=== PATIENT | male | born 1960 | race Caucasian/White ===

== ENCOUNTER → 2019-11-20 | Outpatient (CLI) | payer OTHER ==
--- NOTE | 2019-11-20 10:22 | XR ---
EXAMINATION TYPE: XR chest 2V DATE OF EXAM: 11/20/2019 COMPARISON: None INDICATION: Presurgical evaluation TECHNIQUE: Frontal and lateral views of the chest are obtained. FINDINGS: The heart size is normal. The pulmonary vasculature is normal. The lungs are clear. Osseous structures appear unremarkable. IMPRESSION: 1. No acute pulmonary process.
[2019-11-20 11:27] LABS: Basophils # (A) 0.1 k/uL (0-0.2); Basophils % (A) 1 %; Eosinophils # (A) 0.1 k/uL (0-0.7); Eosinophils % (A) 2 %; HCT 47.3 % (39.0-53.0); HGB 16.6 gm/dL (13.0-17.5); Lymphocytes # (A) 1.5 k/uL (1.0-4.8); Lymphocytes % (A) 23 %; MCH 32.4 pg (25.0-35.0); MCHC 35.2 g/dL (31.0-37.0); Mean Platelet Volume 6.7; Monocytes # (A) 0.4 k/uL (0-1.0); Monocytes % (A) 6 %; Neutrophils # (A) 4.4 k/uL (1.3-7.7); Neutrophils % (A) 68 %; Platelet Count 240 k/uL (150-450); RBC 5.14 m/uL (4.30-5.90); RDW 12.6 % (11.5-15.5); WBC 6.4 k/uL (3.8-10.6)
[2019-11-20 11:36] LABS: Prothrombin Time 10.1 sec (9.0-12.0)
[2019-11-20 12:04] LABS: African American GFR (CKD) >90 (>60 ml/min/1.73 sqM); Anion Gap 8 mmol/L; Blood Urea Nitrogen 17 mg/dL (9-20); Calcium 9.6 mg/dL (8.4-10.2); Carbon Dioxide 28 mmol/L (22-30); Chloride 104 mmol/L (98-107); Glucose 139 mg/dL (74-99); Non-African American GFR(CKD) 79 (>60 ml/min/1.73 sqM); Potassium 4.8 mmol/L (3.5-5.1); Sodium 140 mmol/L (137-145)
== END | disposition home or self-care (01) ==
LOC: LABPAT 09:38
PROVIDERS: ATTEND Urology
DX: Z01.818 Encounter for other preprocedural examination (principal); C61 Malignant neoplasm of prostate; R58 Hemorrhage, not elsewhere classified
CPT/HCPCS: 36415; 71046; 80048; 85025; 85610; 93005

== ENCOUNTER 2019-11-27 05:58 | Observation (INO) | payer OTHER ==
--- NOTE | 2019-11-02 12:21 | P.HPIHPCON ---
History of Present Illness H&P Date: 11/27/19 Chief Complaint: Prostate cancer Mr Beebe is 59 yo male with hx of moriah 7(3+4) prostate cancer. We discussed with him the options including surgery and radiation therapy. We discussed the risk and benefits with him of each approach. I discussed with surgery the risk of urinary incontinence or erectile dysfunction, I also discussed with him risk of injury to nearby organs including but not limited bowels, rectum, bladder and blood vessels. I also discussed the risk from anesthesia with him. Which included blood clots, heart attack, stroke and even . He understood all the risk and agreed to proceed with a robotic-assisted radical prostatectomy Consent for Procedure: I have explained the operation/procedure to the patient, including the risks, benefits, side effects, alternative therapies (including not receiving the proposed treatment or service), the likelihood of the patient achieving his/her goals, and potential recuperation problems for the procedure/sedation/analgesia, as well as any blood products, if indicated. I also explained to the patient the risks, benefits and side effects of the alternatives, as well as the risks related to not receiving the proposed procedure, care, treatment, or services. Surgical - Exam - General well developed, well nourished, no distress - Respiratory normal respiratory effort, clear to auscultation - Neurologic no disoriented, no combative Assessment and Plan Assessment: 59 yo male with hx of moriah 7 (3+4) prostate cancer -OR for robotic prostatectomy
[2019-11-25 10:34] VITALS: BMI 27.8
[~2019-11-27 05:58] MED LIST: DEXAMETHASONE SOD PHOSPHATE 10 MG/ML 1 ML VIAL IV ONE; HYDROmorphone 0.5 MG/0.5 ML SYRINGE IVP PRN; LIDOCAINE 1% (10MG/ML) FOR IV START INTRADERMA PRN; ONDANSETRON 4 MG/2 ML VIAL IVP ONE; ONDANSETRON 4 MG/2 ML VIAL IVP PRN
[2019-11-27] MEDS: LACTATED RINGERS 1,000 ML IV SCH (06:40)
[2019-11-27] MEDS ORDERED: ONDANSETRON 4 MG/2 ML VIAL ONE ×2 (06:41→07:33)
[2019-11-27 07:07] LABS: Appearance,Urine Clear (Clear); Bilirubin,Urine Negative (Negative); Blood,Urine Trace (Negative); Color,Urine Yellow; Glucose,Urine (UA) Negative (Negative); Ketones,Urine Negative (Negative); Leukocyte Esterase,Urine Trace (Negative); Mucus,Urine Rare /hpf; Nitrite,Urine Negative (Negative); Protein,Urine Negative (Negative); RBC,Urine 1 /hpf (0-5); Specific Gravity,Urine 1.018 (1.001-1.035); Urobilinogen,Urine <2.0 mg/dL (<2.0); WBC,Urine 2 /hpf (0-5)
[2019-11-27] MEDS ORDERED: ROCURONIUM BROMIDE 10 MG/ML 5 ML VIAL IV ONE (07:33)
[2019-11-27] MEDS ORDERED: fentaNYL (PF) 50 MCG/ML 2 ML AMP ONE (07:33)
[2019-11-27] MEDS ORDERED: GLYCOPYRROLATE 0.2 MG/ML 2 ML VIAL ONE (07:33)
[2019-11-27] MEDS ORDERED: ePHEDrine SULFATE/0.9% NACL/PF 50 MG/5 ML SYRINGE IV ONE (07:33)
[2019-11-27] MEDS ORDERED: NEOSTIGMINE 1 MG/ML 10 ML VIAL ONE (07:33)
[2019-11-27] MEDS ORDERED: LIDOCAINE 1% INJ 10MG/ML (20 ML MDV) ONE (07:33)
[2019-11-27] MEDS ORDERED: SUCCINYLCHOLINE CHLORIDE 100 MG/5 ML SYR IV ONE (07:33)
[2019-11-27] MEDS ORDERED: PROPOFOL 10 MG/ML 20 ML VIAL IV ONE (07:33)
[2019-11-27] MEDS ORDERED: PHENYLEPHRINE-0.9% NACL SYG 1 MG/10 ML SYRINGE ONE (07:33)
[2019-11-27] MEDS ORDERED: MIDAZOLAM 2 MG/2 ML VIAL ONE (07:33)
[2019-11-27] MEDS ORDERED: BUPIVACAINE (PF) 0.25% 30 ML VIAL SQ ONE (08:16)
--- NOTE | 2019-11-27 12:25 | P.OP ---
Date of Procedure: 11/27/19 Preoperative Diagnosis: prostate cancer Postoperative Diagnosis: same Procedure(s) Performed: Robotic-assisted prostatectomy Implants: None Anesthesia: ASIYA Surgeon: Oskar Caballero Estimated Blood Loss (ml): 150 Pathology: other (Prostate, bilateral seminal vesicles, prostate) Condition: stable Disposition: PACU Indications for Procedure: Mr Beebe is 59 yo male with hx of moriah 7(3+4) prostate cancer. We discussed with him the options including surgery and radiation therapy. We discussed the risk and benefits with him of each approach. I discussed with surgery the risk of urinary incontinence or erectile dysfunction, I also discussed with him risk of injury to nearby organs including but not limited bowels, rectum, bladder and blood vessels. I also discussed the risk from anesthesia with him. Which included blood clots, heart attack, stroke and even . He understood all the risk and agreed to proceed with a robotic-assisted radical prostatectomy Description of Procedure: After preoperative antibiotics were started, the patient was taken to the operating room. Anesthesia was induced and the patient was placed in a low lithitomy position, with adequate padding of the pressure points, shoulders, back, legs and arms. He was then prepped and draped in the standard fashion. A critical pause was performed using two patient identifiers. A 16F champion catheter was placed to gravity drainage. A pneumo-peritoneum was created with placement of a Veress needle to 20 mm Hg without complication, and a 8 Fr trocar was placed above the umbillicus. Under direct vision a 8mm robotic ports was placed lateral to each rectus slightly below the camera port. The left iliac fossa 8mm port was placed. The right office support assistant right iliac fossa 12mm port and right paramedian 5mm portwere placed. After the patient was placed in the trendelenberg position, the robot was then docked to the 8mm robotic ports and then each robotic arm and tower was checked in relation to the patient's legs and hands to avoid inadvertent compression. The peritoneal cavity was inspected. An inverted U-shaped incision began laterally to the left medial umbilical ligament and extended high across the midline to the right umbilical ligament. The limbs of the "U" extended to the level of the vasa on both sides. We next developed the preperitoneal space and the space of Retzius. Cautery was used to dissected the bladder away from the prostate. After the anterior bladder neck was incised and the bladder entered the the posterior bladder neck was exposed and the ureteral orifces identified. The posterior bladder neck was then incised and dissected away from the prostate. The vas and the seminal vesicles were now exposed and dissected to their insertions into the prostate and were not spared. The posterior layer of the Denonvillier's fascia was incised to enter aysha the plane between prostate and perirectal fat. Each lateral pedicle was controlled with clips and cautery for hemostasis. Nerve preservation was performed standared nerve sparing was performed on the left and VEIL was performed on the right. The puboprostatic ligament was incised where it inserted into the apex of the prostate and a plane between urethra and dorsal venous complex developed to expose the anterior urethral surface. The anterior wall of the urethra was transected with the cut setting a few millimeters distal to the apex of the prostate. The dorsal vein was ligated using 3-0 V lock The urethrovesical anastomosis was performed . the posterior denovillers was reapproximated using 3-0 V lock. A 6 and 6 inch 3-0 V-Lock suture was used to anastomose the urethra and bladder, starting at the 6:00 posterior position. Mucosa was secured in every stitch, to ensure a mucosa to mucosa anastomosis. The stitch was regularly cinched and the anastomosis tightened. Care was taken to not violate the ureteral orifices. The Champion catheter was advanced, the bladder filled, and the anastomosis was tested, as described above. Anastomsis was watertight at 150mL The periumbilical fascia was closed with 1-0-PDS suture in figure of 8 fashion/. All ports were closed with a subcuticular 4-0 monocryl and Dermabond. Sponge, instrument, and needle counts were correct at the end of the case x2. All specimens including prostate and lymph nodes were sent to pathology for diagnosis and will be available in a week. The patient tolerated the surgery well and without complication. He awoke without difficulty and was taken to the recovery room in stable condition
[2019-11-27] MEDS ORDERED: HYDROcodone/APAP 5-325MG 1 EACH TAB PO PRN (12:35)
[2019-11-27] MEDS: D5-0.45% NACL WITH KCL 20MEQ/L 1,000 ML IV SCH ×2 (13:36→21:05)
[2019-11-27] MEDS: KETOROLAC 30 MG/ML 1 ML VIAL IVP SCH ×4 (14:18→23:40)
[2019-11-27] MEDS: HEPARIN SODIUM,PORCINE 5,000 UNIT/ML 1 ML VIAL SQ SCH ×2 (15:55→23:41)
[2019-11-28 04:08] VITALS: TEMP 98.1
[2019-11-28] MEDS: D5-0.45% NACL WITH KCL 20MEQ/L 1,000 ML IV SCH (04:48)
[2019-11-28] MEDS: LACTATED RINGERS 1,000 ML IV SCH (04:52)
[2019-11-28] MEDS: KETOROLAC 30 MG/ML 1 ML VIAL IVP SCH (05:54)
[2019-11-28] MEDS: HEPARIN SODIUM,PORCINE 5,000 UNIT/ML 1 ML VIAL SQ SCH (08:55)
--- NOTE | 2019-11-28 09:50 | P.DS ---
Providers Date of admission: 11/27/19 23:45 Expected date of discharge: 11/28/19 Attending physician: Oskar Caballero MD Primary care physician: [facility] Course: The patient is a 59-year-old male recently diagnosed with Qiana 3+4 equal 7 prostate cancer. After reviewing treatment options the patient elected to proceed with radical prostatectomy. The patient underwent robotically assisted laparoscopic prostatectomy on 11/26. He remained afebrile and relatively comfortable postop. He was discharged on 11/27 at which time he was tolerating a regular diet and was ambulatory. His abdominal incisions appear to be healing well and his urine draining from his Matt catheter was clear. The patient will have his catheter remain in place until he is seen in the office on 12/07. Procedures: Robotically assisted radical prostatectomy 11/27/2019 Patient Condition at Discharge: Good Plan - Discharge Summary Discharge Rx Participant: No New Discharge Prescriptions: No Action Multivitamins, Thera [Multivitamin (formulary)] 1 tab PO DAILY Discharge Medication List Multivitamins, Thera [Multivitamin (formulary)] 1 tab PO DAILY 11/25/19 [History] Follow up Appointment(s)/Referral(s): Oskar Caballero MD [STAFF PHYSICIAN] - 12/08/19 Activity/Diet/Wound Care/Special Instructions: Provide patient with leg bag and large catheter bag and instructed in catheter care. Discharge Disposition: HOME SELF-CARE Pending Studies Pending Results: Pathology report
[2019-11-28 09:53] VITALS: BP 114/69; PULSE 80
[2019-11-28 10:46] VITALS: RESP 18
== END 2019-11-28 11:37 | disposition home or self-care (01) ==
LOC: OR 05:58 → 4SSUR 11:56 → OR 23:58
PROVIDERS: ADMIT Urology; ATTEND Urology
DX: C61 Malignant neoplasm of prostate (principal)
CPT/HCPCS: 55866; 86900; 86901; 86850; 81001; 88309; G0378; C1762; J2250; J1644 ×2; J1100; J2710; J0690; J2405; J2001; J3010; J1885 ×2; J2370; J0330; J2704

== ENCOUNTER 2021-05-04 10:39 | Inpatient (IN) | payer OTHER ==
[2021-05-04 11:38] LABS: Basophils % (A) 1 %; Eosinophils % (A) 0 %; HCT 40.1 % (39.0-53.0); HGB 14.1 gm/dL (13.0-17.5); Lymphocytes # (A) 0.4 k/uL (1.0-4.8); Lymphocytes % (A) 5 %; MCH 31.8 pg (25.0-35.0); MCHC 35.2 g/dL (31.0-37.0); MCV 90.2 fL (80.0-100.0); Mean Platelet Volume 8.5; Monocytes # (A) 0.4 k/uL (0-1.0); Monocytes % (A) 5 %; Neutrophils # (A) 7.2 k/uL (1.3-7.7); Neutrophils % (A) 88 %; Platelet Count 198 k/uL (150-450); RBC 4.44 m/uL (4.30-5.90); RDW 11.7 % (11.5-15.5); WBC 8.1 k/uL (3.8-10.6)
--- NOTE | 2021-05-04 12:01 | ED ---
General Adult HPI - General Chief complaint: Shortness of Breath Stated complaint: Covid+/fever/sob Time Seen by Provider: 05/04/21 11:08 Source: patient, RN notes reviewed, old records reviewed Mode of arrival: ambulatory Limitations: no limitations - History of Present Illness Initial comments: 61-year-old male with dyspnea. Patient was diagnosed with coronavirus approximately 2 weeks ago. He's continued to have dyspnea and dry cough. He denies central chest pain. Denies lower extremity pain or swelling.he's had poor appetite. He's had exertional dyspnea. Patient was not previously vaccinated. - Related Data Home Medications Medication Instructions Recorded Confirmed Multivitamins, Thera [Multivitamin 1 tab PO DAILY 11/25/19 11/27/19 (formulary)] Allergies Allergy/AdvReac Type Severity Reaction Status Date / Time No Known Allergies Allergy Verified 11/27/19 06:34 Review of Systems ROS Statement: Those systems with pertinent positive or pertinent negative responses have been documented in the HPI. ROS Other: All systems not noted in ROS Statement are negative. Past Medical History Past Medical History: Cancer, Prostate Disorder Additional Past Medical History / Comment(s): prostate cancer. occasional back pain History of Any Multi-Drug Resistant Organisms: None Reported Past Surgical History: No Surgical Hx Reported Additional Past Surgical History / Comment(s): vasectomy, colonoscopy Past Anesthesia/Blood Transfusion Reactions: No Reported Reaction Past Psychological History: No Psychological Hx Reported Smoking Status: Never smoker Past Alcohol Use History: Rare Past Drug Use History: None Reported - Past Family History Mother Family Medical History: No Reported History General Exam Limitations: no limitations General appearance: alert, in no apparent distress Head exam: Present: atraumatic, normocephalic Eye exam: Present: normal appearance, PERRL Neck exam: Present: normal inspection. Absent: tenderness Respiratory exam: Present: respiratory distress, rhonchi, decreased breath sounds Cardiovascular Exam: Present: regular rate, tachycardia GI/Abdominal exam: Present: soft. Absent: distended, tenderness, guarding, rebound Extremities exam: Present: normal inspection, normal capillary refill. Absent: pedal edema, calf tenderness Neurological exam: Present: alert, oriented X3, CN II-XII intact. Absent: motor sensory deficit Psychiatric exam: Present: normal affect, normal mood Skin exam: Present: warm, dry, intact. Absent: cyanosis, diaphoretic Course Vital Signs 12/02/21 12/02/21 12/02/21 10:58 11:15 11:16 Temperature 99.2 F Pulse Rate 117 H 110 H Respiratory 24 16 16 Rate Blood Pressure 109/66 139/77 O2 Sat by Pulse 85 L 93 L Oximetry 05/04/21 13:39 Temperature Pulse Rate 100 Respiratory 22 Rate Blood Pressure 134/84 O2 Sat by Pulse 90 L Oximetry EKG Findings - EKG Comments: EKG Findings:: Sinus tachycardia, rate of 106, WI interval 138, QRS duration 76, QTC 462, no ST segment elevation. Medical Decision Making - Medical Decision Making 61-year-old male with diagnosis of coronavirus 2 weeks ago. He continues to have dyspnea and cough. There was a moment of time where his symptoms did improve however they've worsened again. There was concern for pulmonary embolism and d-dimer was significantly elevated greater than 34.CT was performed which is negative for pulmonary embolism. Showing bilateral pneumonia. Patient given IV fluids, Decadron and Lovenox in the emergency department he will be admitted to Dr. Serra who is aware. Pulmonology placed on consult. - Lab Data Result diagrams: 05/04/21 11:19 05/04/21 12:16 Lab Results 05/04/21 05/04/21 05/04/21 Range/Units 11:19 11:19 11:19 WBC 8.1 (3.8-10.6) k/uL RBC 4.44 (4.30-5.90) m/uL Hgb 14.1 (13.0-17.5) gm/dL Hct 40.1 (39.0-53.0) % MCV 90.2 (80.0-100.0) fL MCH 31.8 (25.0-35.0) pg MCHC 35.2 (31.0-37.0) g/dL RDW 11.7 (11.5-15.5) % Plt Count 198 (150-450) k/uL MPV 8.5 Neutrophils % 88 % Lymphocytes % 5 % Monocytes % 5 % Eosinophils % 0 % Basophils % 1 % Neutrophils # 7.2 (1.3-7.7) k/uL Lymphocytes # 0.4 L (1.0-4.8) k/uL Monocytes # 0.4 (0-1.0) k/uL Eosinophils # 0.0 (0-0.7) k/uL Basophils # 0.0 (0-0.2) k/uL PT 10.7 (9.0-12.0) sec INR 1.0 (<1.2) APTT 21.5 L (22.0-30.0) sec D-Dimer >34.10 H (<0.60) mg/L FEU Sodium (137-145) mmol/L Potassium (3.5-5.1) mmol/L Chloride (98-107) mmol/L Carbon Dioxide (22-30) mmol/L Anion Gap mmol/L BUN (9-20) mg/dL Creatinine (0.66-1.25) mg/dL Est GFR (CKD-EPI)AfAm (>60 ml/min/1.73 sqM) Est GFR (CKD-EPI)NonAf (>60 ml/min/1.73 sqM) Glucose (74-99) mg/dL Plasma Lactic Acid Kurtis 1.9 (0.7-2.0) mmol/L Calcium (8.4-10.2) mg/dL Magnesium (1.6-2.3) mg/dL Total Bilirubin (0.2-1.3) mg/dL AST (17-59) U/L ALT (4-49) U/L Alkaline Phosphatase (38-126) U/L Troponin I (0.000-0.034) ng/mL NT-Pro-B Natriuret Pep pg/mL Total Protein (6.3-8.2) g/dL Albumin (3.5-5.0) g/dL 05/04/21 05/04/21 05/04/21 Range/Units 11:19 12:16 12:16 WBC (3.8-10.6) k/uL RBC (4.30-5.90) m/uL Hgb (13.0-17.5) gm/dL Hct (39.0-53.0) % MCV (80.0-100.0) fL MCH (25.0-35.0) pg MCHC (31.0-37.0) g/dL RDW (11.5-15.5) % Plt Count (150-450) k/uL MPV Neutrophils % % Lymphocytes % % Monocytes % % Eosinophils % % Basophils % % Neutrophils # (1.3-7.7) k/uL Lymphocytes # (1.0-4.8) k/uL Monocytes # (0-1.0) k/uL Eosinophils # (0-0.7) k/uL Basophils # (0-0.2) k/uL PT (9.0-12.0) sec INR (<1.2) APTT (22.0-30.0) sec D-Dimer (<0.60) mg/L FEU Sodium 135 L (137-145) mmol/L Potassium 4.3 (3.5-5.1) mmol/L Chloride 102 (98-107) mmol/L Carbon Dioxide 28 (22-30) mmol/L Anion Gap 5 mmol/L BUN 17 (9-20) mg/dL Creatinine 0.93 (0.66-1.25) mg/dL Est GFR (CKD-EPI)AfAm >90 (>60 ml/min/1.73 sqM) Est GFR (CKD-EPI)NonAf 87 (>60 ml/min/1.73 sqM) Glucose 175 H (74-99) mg/dL Plasma Lactic Acid Kurtis (0.7-2.0) mmol/L Calcium 8.1 L (8.4-10.2) mg/dL Magnesium 2.1 (1.6-2.3) mg/dL Total Bilirubin 0.6 (0.2-1.3) mg/dL AST 67 H (17-59) U/L ALT 85 H (4-49) U/L Alkaline Phosphatase 77 (38-126) U/L Troponin I <0.012 (0.000-0.034) ng/mL NT-Pro-B Natriuret Pep 500 pg/mL Total Protein 5.6 L (6.3-8.2) g/dL Albumin 2.7 L (3.5-5.0) g/dL Critical Care Time Critical Care Time: Yes Total Critical Care Time: 35 Disposition Clinical Impression: Pneumonia due to COVID-19 virus, Hypoxia Disposition: ADMITTED IP TO THIS [facility] Condition: Stable Is patient prescribed a controlled substance at d/c from ED?: No Referrals: Sal Zelaya DO [Primary Care Provider] - 1-2 days Time of Disposition: 13:45 Decision to Admit Reason: Admit from EC Decision Date: 05/04/21 Decision Time: 13:46
--- NOTE | 2021-05-04 12:06 | XR ---
EXAMINATION TYPE: XR chest 2V DATE OF EXAM: 05/04/2021 COMPARISON: 11/20/2019 HISTORY: Shortness of breath TECHNIQUE: Frontal and lateral views of the chest are obtained. FINDINGS: Scattered senescent parenchymal changes noted. Hyperinflation compatible with COPD. Scattered areas of infiltrate throughout both lung carrasco compatible with underlying pneumonia. Heart size is stable. Mediastinal structures are stable and grossly unremarkable. No evidence for hilar prominence. Degenerative changes dorsal spine. IMPRESSION: 1. Scattered areas of infiltrate throughout both lung carrasco compatible with underlying pneumonia.
[2021-05-04 12:17] LABS: Prothrombin Time 10.7 sec (9.0-12.0)
[2021-05-04 12:22] LABS: Partial Thromboplastin Time 21.5 sec (22.0-30.0)
[2021-05-04 12:46] LABS: African American GFR (CKD) >90 (>60 ml/min/1.73 sqM); Albumin 2.7 g/dL (3.5-5.0); Anion Gap 5 mmol/L; Carbon Dioxide 28 mmol/L (22-30); Chloride 102 mmol/L (98-107); Glucose 175 mg/dL (74-99); Non-African American GFR(CKD) 87 (>60 ml/min/1.73 sqM); Potassium 4.3 mmol/L (3.5-5.1); Sodium 135 mmol/L (137-145); Total Protein 5.6 g/dL (6.3-8.2)
[2021-05-04 12:47] LABS: ALT 85 U/L (4-49); AST 67 U/L (17-59); Alkaline Phosphatase 77 U/L (38-126); Blood Urea Nitrogen 17 mg/dL (9-20); Calcium 8.1 mg/dL (8.4-10.2); Magnesium 2.1 mg/dL (1.6-2.3); Total Bilirubin 0.6 mg/dL (0.2-1.3)
--- NOTE | 2021-05-04 13:12 | CT ---
EXAMINATION TYPE: CT angio chest DATE OF EXAM: 05/04/2021 COMPARISON: Chest x-ray earlier today. HISTORY: Difficulty breathing. CT DLP: 383 mGycm. Automated Exposure Control for Dose Reduction was Utilized. CONTRAST: CTA scan of the thorax is performed with IV Contrast, patient injected with 100 mL of Isovue 370, pul monary embolism protocol. MIP Images are created on CT scanner and reviewed. FINDINGS: LUNGS: Multifocal and confluent groundglass opacities bilaterally are confirmed with subpleural spari ng noted. Some relative sparing of the anterior mid to lower lungs bilaterally present. No pleural ef fusion or pneumothorax seen bilaterally. MEDIASTINUM: There is satisfactory enhancement of the pulmonary artery and its branches, there is no CT evidence for pulmonary embolism. Main pulmonary artery measures up to 2.9 cm in diameter. Satisfac tory enhancement of the aorta without aneurysm or dissection. There are prominent and slightly enlarg ed bilateral hilar lymph nodes. There is an enlarged 2.0 x 1.4 cm subcarinal lymph node image 63. No cardiomegaly or pericardial effusion is seen. OTHER: Small size hiatal hernia. Slight scoliotic curvature with multilevel spurring of the spine IMPRESSION: 1. No CT evidence for acute pulmonary embolism. 2. Redemonstration of bilateral multifocal and confluent groundglass opacities consistent with known covid-19 infection are redemonstrated.
[2021-05-04] MEDS ORDERED: DEXAMETHASONE SOD PHOSPHATE 10 MG/ML 1 ML VIAL IV STA (13:22)
[2021-05-04] MEDS ORDERED: SODIUM CHLORIDE 0.9% 500 ML 500 ML IV ONE (13:22)
[2021-05-04] MEDS: SODIUM CHLORIDE 0.9% 1,000 ML IV SCH (13:39)
[2021-05-04] MEDS ORDERED: NALOXONE 0.4 MG/ML 1 ML VIAL IV PRN (13:42)
[2021-05-04] MEDS ORDERED: ACETAMINOPHEN TAB 325 MG TAB PO PRN (13:42)
[2021-05-04] MEDS ORDERED: ENOXAPARIN 40 MG/0.4 ML SYRINGE SQ STA (13:44)
--- NOTE | 2021-05-04 16:25 | P.CNPUL ---
History of Present Illness Consult date: 05/04/21 Reason for consult: dyspnea History of present illness: 61-year-old male patient admitted to the hospital because of "appendectomy related pneumonia. The patient diagnosed today with COVID 19 infection. The patient developed symptoms approximately 2 weeks ago. His symptoms are essentially related to dyspnea and dry cough. No chest pain. He had poor appetite and generalized weakness and fatigue. This is a nonvaccinated individual. The patient came into the hospital and the patient had a temperature of 99.2. Pulse ox was low at 85%. Currently is on oxygen at 4 L and he has diffuse bilateral pulmonary infiltrates on his chest x-ray. He was started on Decadron. White cell count is at 8.4 with a platelet of 198. D- dimer is more than 34 and a normal coagulation profile with a lactic acid level of 1.9. CT angiogram showed no evidence of any pulmonary embolism and there was diffuse bilateral pulmonary infiltrates consistent with COVID 19 related pneumonia. Mild transaminitis related to the infection and troponins are negati ve. Comorbid conditions include prostate cancer Review of Systems Constitutional: Reports fatigue, Reports weakness Eyes: denies as per HPI, denies blurred vision, denies bulging eye, denies decreased vision, denies diplopia, denies discharge, denies dry eye, denies irritation, denies itching, denies pain, denies photophobia, denies loss of peripheral vision, denies loss of vision, denies tunnel vision/blind spots Ears: deny: decreased hearing, ear discharge, earache, tinnitus Ears, nose, mouth and throat: Reports as per HPI Breasts: absent: as per HPI, gynecomastia Cardiovascular: Reports decreased exercise tolerance, Reports dyspnea on exertion Respiratory: Reports cough, Reports dyspnea Gastrointestinal: Reports as per HPI Genitourinary: Reports urinary frequency Musculoskeletal: Reports as per HPI, Reports muscle weakness Musculoskeletal: absent: ankle pain, ankle stiffness, ankle swelling, as per HPI, elbow pain, elbow stiffness, elbow swelling, foot pain, foot stiffness, foot swelling, hand pain, hand stiffness, hand swelling, hip pain, hip stiffness, hip swelling, knee pain, knee stiffness, knee swelling, shoulder pain, shoulder stiffness, shoulder swelling, wrist pain, wrist stiffness, wrist swelling Integumentary: Reports as per HPI Neurological: Reports as per HPI, Reports weakness Psychiatric: Reports as per HPI Endocrine: Reports as per HPI Hematologic/Lymphatic: Reports as per HPI Allergic/Immunologic: Reports as per HPI Past Medical History Past Medical History: Coronary Artery Disease (CAD), Cancer, Prostate Disorder Additional Past Medical History / Comment(s): Prostate cancer with surgery, occasional back pain. History of Any Multi-Drug Resistant Organisms: None Reported Past Surgical History: Prostate Surgery Additional Past Surgical History / Comment(s): Roboti assisted prostatectomy, vasectomy, colonoscopy Past Anesthesia/Blood Transfusion Reactions: No Reported Reaction Smoking Status: Never smoker - Past Family History Mother Family Medical History: No Reported History Additional Family Medical History / Comment(s): Mother is living. Father Family Medical History: Coronary Artery Disease (CAD) Additional Family Medical History / Comment(s): Father is 89yrs old. He has had CABG Medications and Allergies Home Medications Medication Instructions Recorded Confirmed Type Multivitamins, Thera [Multivitamin 1 tab PO DAILY 11/25/19 05/04/21 History (formulary)] Allergies Allergy/AdvReac Type Severity Reaction Status Date / Time No Known Allergies Allergy Verified 05/04/21 13:46 Physical Exam Vitals: Vital Signs Temp Pulse Resp BP Pulse Ox 05/04/21 15:00 107 H 16 144/85 93 L 05/04/21 13:39 100 22 134/84 90 L 05/04/21 11:16 110 H 16 139/77 93 L 05/04/21 11:15 16 05/04/21 10:58 99.2 F 117 H 24 109/66 85 L Intake and Output 05/04/21 05/04/21 05/04/21 06:59 14:59 22:59 Other: # Voids 1 Weight 92.079 kg 92.079 kg The patient appeared well nourished and normally developed. Vital signs as documented. Head exam is unremarkable. No scleral icterus or corneal arcus noted. Neck is without jugular venous distension, thyromegaly, or carotid bruits. Carotid upstrokes are brisk bilaterally. Lungs crackles in the mid and lower lung his bilaterally.. Cardiac exam reveals the PMI to be normally sized and situated. Rhythm is regular. First and second heart sounds normal. No murmurs, rubs or gallops. Abdominal exam reveals normal bowel sounds, no masses, no organomegaly and no aortic enlargement. Extremities are nonedematous and both femoral and pedal pulses are normal.Examination of the skin revealed no evidence of significant rashes, suspicious appearing nevi or other concerning lesions.Neurologically, the patient is awake and alert and the patient does not have any focal neurological deficit. Cranial nerves are essentially intact. Results - Laboratory Findings CBC and BMP: 05/04/21 11:19 05/04/21 12:16 PT/INR, D-dimer PT 10.7 sec (9.0-12.0) 05/04/21 11:19 INR 1.0 (<1.2) 05/04/21 11:19 D-Dimer >34.10 mg/L FEU (<0.60) H 05/04/21 11:19 Abnormal lab findings: Abnormal Labs 05/04/21 05/04/21 05/04/21 11:19 11:19 12:16 Lymphocytes # 0.4 L APTT 21.5 L D-Dimer >34.10 H Sodium 135 L Glucose 175 H Calcium 8.1 L AST 67 H ALT 85 H Total Protein 5.6 L Albumin 2.7 L - Diagnostic Findings Chest x-ray: image reviewed Assessment and Plan Plan: 1 acute pneumonia most likely secondary to COVID 19 infection. Awaiting COVID 19 results by PCR. The patient got swelled. The emergency and the result is still pending. Nevertheless, his presentation is typical for COVID 19 infection the patient was some thoracic approximately 2 weeks ago. He currently has bilateral lower lobe and upper lobe pulmonary infiltrates with a peripheral distribution. 2 acute hypoxic respiratory failure currently on 4 L of oxygen by nasal cannula 3 shortness of breath secondary to above 4 elevated d-dimer with a negative EKG angiogram. Inflammatory markers will be monitored 5 mild transaminitis secondary to COVID 19. 6 lymphopenia 7 history of prostate cancer 8 history of coronary artery disease with previous coronary stenting Plan titrate the oxygen flow to maintain a saturation above 90%, start the patient on Decadron 6 mg IV every 24 hours. Check inflammatory markers including pro- calcitonin level in addition to LDH and CRP. Put the patient on Lovenox 40 mg subcu daily. Check Dopplers to rule out lower extremity DVT especially with his elevated D dimers. We'll continue to follow. He is outside the window for Remdesivir.
[2021-05-04] MEDS: ZINC SULFATE 220 MG CAP PO SCH (17:18)
[2021-05-04] MEDS: DEXAMETHASONE SOD PHOSPHATE 10 MG/ML 1 ML VIAL IVP SCH (17:18)
[2021-05-04] MEDS: CHOLECALCIFEROL 25 MCG (1000 IU) TABLET PO SCH (17:18)
--- NOTE | 2021-05-04 17:47 | US ---
EXAMINATION TYPE: US venous doppler duplex LE DATE OF EXAM: 05/04/2021 5:23 PM COMPARISON: NONE CLINICAL HISTORY: elevated d-dimer. abn labs, no symptoms, Covid+ SIDE PERFORMED: Bilateral TECHNIQUE: The lower extremity deep venous system is examined utilizing real time linear array sonog rios with graded compression, doppler sonography and color-flow sonography. VESSELS IMAGED: Common Femoral Vein Deep Femoral Vein Greater Saphenous Vein * Femoral Vein Popliteal Vein Small Saphenous Vein * Proximal Calf Veins (* superficial vessels) FINDINGS: Grayscale, color doppler, spectral doppler imaging performed of the deep veins of the lower extremities. Left lower extremity: There is normal flow, compressibility, vascular waveforms. Right lower extremity: Normal flow, compressibility, and vascular waveforms proximally and down to th e level of the mid popliteal vein. However, unable to compress distal popiteal pain, and prox calf ve ins, and no Doppler flow was demonstrated. IMPRESSION: 1. LEFT LOWER EXTREMITY: Negative For DVT. 2. RIGHT LOWER EXTREMITY: Positive for occlusive DVT from the level of the mid-popliteal vein on into the proximal calf veins.
[2021-05-04] MEDS: ASCORBIC ACID 500 MG TAB PO SCH (21:01)
[2021-05-05] MEDS: ENOXAPARIN 40 MG/0.4 ML SYRINGE SQ SCH ×2 (09:01→09:03)
[2021-05-05] MEDS: CHOLECALCIFEROL 25 MCG (1000 IU) TABLET PO SCH (09:01)
[2021-05-05] MEDS: DEXAMETHASONE SOD PHOSPHATE 10 MG/ML 1 ML VIAL IVP SCH (09:01)
[2021-05-05] MEDS: ZINC SULFATE 220 MG CAP PO SCH (09:01)
[2021-05-05] MEDS: ASCORBIC ACID 500 MG TAB PO SCH ×2 (09:01→21:48)
[2021-05-05] MEDS: SODIUM CHLORIDE 0.9% 1,000 ML IV SCH ×3 (09:03→21:55)
--- NOTE | 2021-05-05 10:18 | P.HPIM ---
History of Present Illness H&P Date: 05/05/21 HISTORY OF PRESENT ILLNESS This is a 61 year old male patient of Dr. Zelaya with past medical history of urinary artery disease, prostate cancer status post robotic-assisted prostatectomy, chronic back pain. Patient developed cough and difficulty breathing 2 weeks ago. He also complains of decreased appetite, generalized weakness and fatigue. Patient came into the hospital and found to have a pulse ox of 85%, temperature 99.2, heart rate 117, respiratory rate 24, blood pressure 109/66. CBC was unremarkable except for lymphocytes of 0.4. D-dimer greater than 34. Sodium 135 otherwise electrolytes and renal function normal. Blood sugar 175. Lactic acid 1.9. Magnesium 2.1. AST 67, ALT 85, alkaline phosphatase 77. ProBNP 500. Troponin negative. Pro-calcitonin 0.24. Carotid virus PCR detected. Chest x-ray revealed scattered areas of infiltrate throughout both lung carrasco compatible with underlying pneumonia. CTA of the chest revealed no evidence of pulmonary embolism. Bilateral multifocal and confluent groundglass opacities consistent with known Covid 19 infection. Ultrasound of bilateral lower extremities revealed positive for DVT on the right at the level of the mid popliteal vein. Patient has been admitted to the [facility] floor, seen by pulmonary medicine and patient has been started on vitamin supplements, dexamethasone 6 mg IV push daily, Lovenox 40 mg daily. REVIEW OF SYSTEMS Constitutional: No fever, no chills, no night sweats. No weight change. No weakness, reports and had positive Covid test done at [facility] pharmacy on 04/20. He has been off work since that time. Symptoms of 1. started to get better and then worsened recently. fatigue or lethargy. No daytime sleepiness. EENT: No headache. No blurred vision or double vision, no loss of vision. No loss of Hearing, no ringing in the ears, no dizziness. No nasal drainage or congestion. No epistaxis. No sore throat. Lungs: Reports shortness of breath, reports cough, no sputum production. No wheezing. Cardiovascular: No chest pain, no lower extremity edema. No palpitations. No paroxysmal nocturnal dyspnea. No orthopnea. No lightheadedness or dizziness. No syncopal episodes. Abdominal: No abdominal pain. No nausea, vomiting. No diarrhea. No constipation. No bloody or tarry stools. No loss of appetite. Genitourinary: No dysuria, increased frequency, urgency. No urinary retention. Musculoskeletal: No myalgias. No muscle weakness, no gait dysfunction, no frequent falls. No back pain. No neck pain. Integumentary: No wounds, no lesions. No rash or pruritus. No unusual bruising. No change in hair or nails. Neurologic: No aphasia. No facial droop. No change in mentation. No head injury. No headache. No paralysis. No paresthesia. Psychiatric: No depression. No anxiety. No mood swings. Endocrine: No abnormal blood sugars. No weight change. No excessive sweating or thirst. No cold intolerance. SOCIAL HISTORY The patient has been a lifelong nonsmoker, no alcohol use, no marijuana or illicit drug use. Patient lives at home with his . He works at [employer] FAMILY HISTORY Father is alive at age 89 with history of coronary artery disease status post CABG. Mother is alive at age 88 with no significant medical problems. Patient has 2 sisters and 1 brother with no major medical problems. Patient also has 1 son and 2 daughters with no major medical problems. PHYSICAL EXAMINATION Gen: This is this is a 61-year-old male. He is resting in bed and appears to be comfortable at rest. Patient is currently on 5-1/2 L nasal cannula. HEENT: Head is atraumatic, normocephalic. Pupils equal, round. Sclerae is ani cteric. NECK: Supple. No JVD. No lymphadenopathy. No thyromegaly. LUNGS: Crackles in the bilaterally. No intercostal retractions. HEART: Regular rate and rhythm. No murmur. ABDOMEN: Soft. Bowel sounds are present. No masses. No tenderness. EXTREMITIES: No pedal edema. No calf tenderness. Dorsalis pedis +2 bilaterally. NEUROLOGICAL: Patient is awake, alert and oriented x3. Cranial nerves 2 through 12 are grossly intact. ASSESSMENT AND PLAN 1. Acute bilateral pneumonia and sepsis secondary to Covid 19 infection. Consult with pulmonary medicine appreciated. Continue on vitamin supplements, dexamethasone 6 mg IV push daily, Lovenox 40 mg daily. 2. Acute hypoxic respiratory failure secondary to Covid 19 infection. Continue oxygen therapy. 3. Hyperglycemia with no previous diagnosis of diabetes. Obtain A1c, NovoLog scale before meals and at bedtime. 4. DVT in the right lower extremity. Lovenox increased to 80 mg twice daily subcu. 5. Mild transaminitis secondary to Covid 19 next field lymphopenia secondary to Covid 19. 6. History of coronary artery disease with previous stent. 7. History of prostate cancer status post robotic prostatectomy. 8. GI prophylaxis. Protonix. 9. DVT prophylaxis. Lovenox. Patient will be admitted to the hospital for a minimum of 2 night stay. DISCHARGE PLAN Home. Impression and plan of care have been directed as dictated by the signing physician. Salima Coleman nurse practitioner acting as scribe for signing physician. Past Medical History Past Medical History: Coronary Artery Disease (CAD), Cancer, Prostate Disorder Additional Past Medical History / Comment(s): Prostate cancer with surgery, occasional back pain. History of Any Multi-Drug Resistant Organisms: None Reported Past Surgical History: Prostate Surgery Additional Past Surgical History / Comment(s): Roboti assisted prostatectomy, vasectomy, colonoscopy Past Anesthesia/Blood Transfusion Reactions: No Reported Reaction Smoking Status: Never smoker - Past Family History Mother Family Medical History: No Reported History Additional Family Medical History / Comment(s): Mother is living. Father Family Medical History: Coronary Artery Disease (CAD) Additional Family Medical History / Comment(s): Father is 89yrs old. He has had CABG Medications and Allergies Home Medications Medication Instructions Recorded Confirmed Type Multivitamins, Thera [Multivitamin 1 tab PO DAILY 11/25/19 05/04/21 History (formulary)] Allergies Allergy/AdvReac Type Severity Reaction Status Date / Time No Known Allergies Allergy Verified 05/04/21 13:46 Physical Exam Vitals: Vital Signs Temp Pulse Pulse Resp BP BP Pulse Ox 05/05/21 06:19 98.2 F 72 18 128/71 89 L 05/05/21 02:00 98.4 F 68 18 131/72 92 L 05/04/21 23:10 99.2 F 78 18 146/82 92 L 05/04/21 23:02 18 05/04/21 15:00 107 H 16 144/85 93 L 05/04/21 13:39 100 22 134/84 90 L 05/04/21 11:16 110 H 16 139/77 93 L 05/04/21 11:15 16 05/04/21 10:58 99.2 F 117 H 24 109/66 85 L Intake and Output 05/04/21 05/05/21 05/05/21 22:59 06:59 14:59 Other: Voiding Method Urinal # Voids 1 3 Weight 92.079 kg Results CBC & Chem 7: 05/04/21 11:19 05/04/21 12:16 Labs: Abnormal Lab Results - Last 24 Hours (Table) 05/04/21 05/04/21 05/04/21 Range/Units 11:19 11:19 12:16 Lymphocytes # 0.4 L (1.0-4.8) k/uL APTT 21.5 L (22.0-30.0) sec D-Dimer >34.10 H (<0.60) mg/L FEU Sodium 135 L (137-145) mmol/L Glucose 175 H (74-99) mg/dL Calcium 8.1 L (8.4-10.2) mg/dL AST 67 H (17-59) U/L ALT 85 H (4-49) U/L Total Protein 5.6 L (6.3-8.2) g/dL Albumin 2.7 L (3.5-5.0) g/dL Procalcitonin (0.02-0.09) ng/mL Coronavirus (PCR) (Not Detectd) 05/04/21 05/04/21 Range/Units 16:24 21:40 Lymphocytes # (1.0-4.8) k/uL APTT (22.0-30.0) sec D-Dimer (<0.60) mg/L FEU Sodium (137-145) mmol/L Glucose (74-99) mg/dL Calcium (8.4-10.2) mg/dL AST (17-59) U/L ALT (4-49) U/L Total Protein (6.3-8.2) g/dL Albumin (3.5-5.0) g/dL Procalcitonin 0.24 H (0.02-0.09) ng/mL Coronavirus (PCR) Detected A (Not Detectd) Thrombosis Risk Factor Assmnt - Choose All That Apply Any of the Below Risk Factors Present?: Yes Each Factor Represents 1 point: Obesity (BMI >25), Serious lung disease incl. pneumonia (< 1month) Other Risk Factors: Yes Each Risk Factor Represents 2 Points: Age 61-74 years, Malignancy Other congenital or acquired thrombophilia - If yes, enter type in comment: No Thrombosis Risk Factor Assessment Total Risk Factor Score: 6 Thrombosis Risk Factor Assessment Level: High Risk
[2021-05-05] MEDS ORDERED: ENOXAPARIN 40 MG/0.4 ML SYRINGE SQ ONE (10:30)
[2021-05-05] MEDS ORDERED: ENOXAPARIN 80 MG/0.8 ML SYRINGE SQ SCH (10:30)
--- NOTE | 2021-05-05 11:35 | P.PN ---
Subjective Progress Note Date: 05/05/21 61-year-old male patient admitted to the hospital because of COVID 19 related pneumonia. The patient diagnosed today with COVID 19 infection. The patient developed symptoms approximately 2 weeks ago. His symptoms are essentially related to dyspnea and dry cough. No chest pain. He had poor appetite and generalized weakness and fatigue. This is a nonvaccinated individual. The patient came into the hospital and the patient had a temperature of 99.2. Pulse ox was low at 85%. Currently is on oxygen at 4 L and he has diffuse bilateral pulmonary infiltrates on his chest x-ray. He was started on Decadron. White cell count is at 8.4 with a platelet of 198. D-dimer is more than 34 and a normal coagulation profile with a lactic acid level of 1.9. CT angiogram showed no evidence of any pulmonary embolism and there was diffuse bilateral pulmonary infiltrates consistent with COVID 19 related pneumonia. Mild transaminitis related to the infection and troponins are negative. Comorbid conditions include prostate cancer On 05/05/2021 patient seen in follow-up on medical surgical floor. Patient is awake and alert, in no acute distress , breathing fairly comfortably, occasional cough, no chest discomfort, he is currently on 6 L of oxygen. Pulse ox is 92%. Lung sounds reveal diffuse coarse crackles bilaterally, this had no fever or chills, vital signs have been stable. Lower extremity Dopplers were completed showing occlusive right mid popliteal vein DVT, left leg was negative for DVT, patient's Lovenox dose was adjusted to therapeutic dosing and patient is currently on Lovenox 80 mg twice daily, in addition patient is on Decadron 6 mg IV push daily, in addition to COVID-19 vitamins. He was outside the window for Remdesivir. No acute events overnight, his pro calcitonin level came back negative at 0.24, his follow-up inflammatory markers and d-dimer are pending for today. Objective - Vital Signs Vital signs: Vital Signs Temp 97.6 F 05/05/21 09:54 Pulse 68 05/05/21 09:54 Resp 20 05/05/21 09:54 BP 123/72 05/05/21 09:54 Pulse Ox 92 L 05/05/21 09:54 Intake & Output 05/04/21 05/05/21 05/05/21 18:59 06:59 18:59 Output Total 300 Balance -300 Weight 92.079 kg Output: Urine 300 Other: Voiding Method Urinal # Voids 1 3 1 - Exam GENERAL EXAM: Alert, a pleasant, 61-year-old white male oxygen and pulse ox of 92% comfortable in no apparent distress. HEAD: Normocephalic/atraumatic. EYES: Normal reaction of pupils, equal size. Conjunctiva pink, sclera white. NOSE: Clear with pink turbinates. THROAT: No erythema or exudates. NECK: No masses, no JVD, no thyroid enlargement, no adenopathy. CHEST: No chest wall deformity. Symmetrical expansion. LUNGS: Equal air entry with bilateral crackles at bilateral bases CVS: Regular rate and rhythm, normal S1 and S2, no gallops, no murmurs, no rubs ABDOMEN: Soft, nontender. No hepatosplenomegaly, normal bowel sounds, no guarding or rigidity. EXTREMITIES: No clubbing, no edema, no cyanosis, 2+ pulses and upper and lower extremities. MUSCULOSKELETAL: Muscle strength and tone normal. SPINE: No scoliosis or deformity SKIN: No rashes CENTRAL NERVOUS SYSTEM: Alert and oriented -3. No focal deficits, tone is normal in all 4 extremities. PSYCHIATRIC: Alert and oriented -3. Appropriate affect. Intact judgment and insight. - Labs CBC & Chem 7: 05/04/21 11:19 05/04/21 12:16 Labs: Abnormal Lab Results - Last 24 Hours (Table) 05/04/21 05/04/21 05/04/21 Range/Units 11:19 11:19 12:16 Lymphocytes # 0.4 L (1.0-4.8) k/uL APTT 21.5 L (22.0-30.0) sec D-Dimer >34.10 H (<0.60) mg/L FEU Sodium 135 L (137-145) mmol/L Glucose 175 H (74-99) mg/dL Calcium 8.1 L (8.4-10.2) mg/dL AST 67 H (17-59) U/L ALT 85 H (4-49) U/L Total Protein 5.6 L (6.3-8.2) g/dL Albumin 2.7 L (3.5-5.0) g/dL Procalcitonin (0.02-0.09) ng/mL Coronavirus (PCR) (Not Detectd) 12/02/21 12/02/21 Range/Units 16:24 21:40 Lymphocytes # (1.0-4.8) k/uL APTT (22.0-30.0) sec D-Dimer (<0.60) mg/L FEU Sodium (137-145) mmol/L Glucose (74-99) mg/dL Calcium (8.4-10.2) mg/dL AST (17-59) U/L ALT (4-49) U/L Total Protein (6.3-8.2) g/dL Albumin (3.5-5.0) g/dL Procalcitonin 0.24 H (0.02-0.09) ng/mL Coronavirus (PCR) Detected A (Not Detectd) Assessment and Plan Plan: Assessment: #1. Acute pneumonia related to COVID 19 infection. Patient was symptom onset approximately 2 weeks ago. He currently has bilateral lower lobe and upper lobe pulmonary infiltrates with a peripheral distribution. Was outside the window for Remdesivir #2. Acute hypoxic respiratory failure currently on 6 L of oxygen by nasal cannula #3. Shortness of breath secondary to above #4. Elevated d-dimer with a negative EKG angiogram. Inflammatory markers will be monitored #5. Mild transaminitis secondary to COVID 19. #6. Lymphopenia #7. History of prostate cancer #8. Hiistory of coronary artery disease with previous coronary stenting #9. Acute occlusive right mid popliteal DVT Plan: Patient's Lovenox was adjusted and is currently at therapeutic dosing on 80 mg twice daily for acute DVT in the right lower extremity Continue Decadron, continue multivitamins Continue monitoring patient's inflammatory markers Provide incentive spirometer, encourage deep breathing and breathing, and repositioning self in bed, self pronating if able Condition is fairly stable, although FiO2 requirement slightly increased We'll continue to monitor I performed a history & physical examination of the patient and discussed their management with my nurse practitioner, Justina Lao. I reviewed the nurse practitioner's note and agree with the documented findings and plan of care. Lung sounds are positive for diminished with diffuse rales throughout the lung carrasco. The findings and the impression was discussed with the patient. I attest to the documentation by the nurse practitioner. Time with Patient: Less than 30
[2021-05-05] MEDS: INSULIN ASPART (NovoLOG) 100 UNIT/ML VIAL SQ SCH ×3 (12:11→21:48)
[2021-05-05 14:57] VITALS: BMI 29.1
[2021-05-05 16:57] LABS: Glucose,Whole Blood 328 mg/dL (75-99)
[2021-05-05 20:40] LABS: Glucose,Whole Blood 225 mg/dL (75-99)
[2021-05-05] MEDS: ENOXAPARIN 80 MG/0.8 ML SYRINGE SQ SCH (21:49)
[2021-05-06 07:25] LABS: Glucose,Whole Blood 156 mg/dL (75-99)
[2021-05-06] MEDS: ENOXAPARIN 80 MG/0.8 ML SYRINGE SQ SCH ×2 (07:44→21:27)
[2021-05-06] MEDS: INSULIN ASPART (NovoLOG) 100 UNIT/ML VIAL SQ SCH ×4 (07:44→21:27)
[2021-05-06] MEDS: CHOLECALCIFEROL 25 MCG (1000 IU) TABLET PO SCH (07:44)
[2021-05-06] MEDS: ASCORBIC ACID 500 MG TAB PO SCH ×2 (07:44→21:27)
[2021-05-06] MEDS: ZINC SULFATE 220 MG CAP PO SCH (07:45)
[2021-05-06] MEDS: DEXAMETHASONE SOD PHOSPHATE 10 MG/ML 1 ML VIAL IVP SCH (08:58)
[2021-05-06] MEDS: SODIUM CHLORIDE 0.9% 1,000 ML IV SCH ×2 (08:58→17:01)
[2021-05-06 11:36] LABS: C Reactive Protein 7.4 mg/dL (<1.0)
[2021-05-06 11:40] LABS: Glucose,Whole Blood 245 mg/dL (75-99)
--- NOTE | 2021-05-06 13:37 | P.PN ---
Subjective Progress Note Date: 05/06/21 HISTORY OF PRESENT ILLNESS This is a 61 year old male patient of Dr. Zelaya with past medical history of urinary artery disease, prostate cancer status post robotic-assisted pro statectomy, chronic back pain. Patient developed cough and difficulty breathing 2 weeks ago. He also complains of decreased appetite, generalized weakness and fatigue. Patient came into the hospital and found to have a pulse ox of 85%, temperature 99.2, heart rate 117, respiratory rate 24, blood pressure 109/66. CBC was unremarkable except for lymphocytes of 0.4. D-dimer greater than 34. Sodium 135 otherwise electrolytes and renal function normal. Blood sugar 175. Lactic acid 1.9. Magnesium 2.1. AST 67, ALT 85, alkaline phosphatase 77. ProBNP 500. Troponin negative. Pro- calcitonin 0.24. Carotid virus PCR detected. Chest x-ray revealed scattered areas of infiltrate throughout both lung carrasco compatible with underlying pneumonia. CTA of the chest revealed no evidence of pulmonary embolism. Bilateral multifocal and confluent groundglass opacities consistent with known Covid 19 infection. Ultrasound of bilateral lower extremities revealed positive for DVT on the right at the level of the mid popliteal vein. Patient has been admitted to the [facility] floor, seen by pulmonary medicine and patient has been started on vitamin supplements, dexamethasone 6 mg IV push daily, Lovenox 40 mg daily. 05/06: Patient is seen today in follow-up on the [facility] floor. He states he has been out of bed once to the bathroom to shave but otherwise in bed. Pulse ox is 96% on 6 L nasal cannula. He has been afebrile, heart rate 70, blood pressure 139/82. Patient has been seen by pulmonary medicine and continued on Decadron, Lovenox and vitamin supplements. REVIEW OF SYSTEMS Constitutional: No fever, no chills, no night sweats. No weight change. No weakness, reports and had positive Cov[facility] test done at [facility] on 04/[facility]. He has been off work since that time. Symptoms of 1. started to get better and then worsened recently. fatigue or lethargy. No daytime sleepiness. EENT: No headache. No blurred vision or double vision, no loss of vision. No loss of Hearing, no ringing in the ears, no dizziness. No nasal drainage or congestion. No epistaxis. No sore throat. Lungs: Reports shortness of breath, reports cough, no sputum production. No wheezing. Reports dyspnea with minimal activity Cardiovascular: No chest pain, no lower extremity edema. No palpitations. No paroxysmal nocturnal dyspnea. No orthopnea. No lightheadedness or dizziness. No syncopal episodes. Abdominal: No abdominal pain. No nausea, vomiting. No diarrhea. No constipation. No bloody or tarry stools. No loss of appetite. Genitourinary: No dysuria, increased frequency, urgency. No urinary retention. Musculoskeletal: No myalgias. No muscle weakness, no gait dysfunction, no frequent falls. No back pain. No neck pain. Integumentary: No wounds, no lesions. No rash or pruritus. No unusual bruising. No change in hair or nails. Neurologic: No aphasia. No facial droop. No change in mentation. No head injury. No headache. No paralysis. No paresthesia. Psychiatric: No depression. No anxiety. No mood swings. Endocrine: No abnormal blood sugars. No weight change. No excessive sweating or thirst. No cold intolerance. PHYSICAL EXAMINATION Gen: This is this is a 61-year-old male. He is resting in bed and a ppears to be comfortable at rest. Patient is currently on 6 L nasal cannula. HEENT: Head is atraumatic, normocephalic. Pupils equal, round. Sclerae is anicteric. NECK: Supple. No JVD. No lymphadenopathy. No thyromegaly. LUNGS: Crackles in the bilaterally. No intercostal retractions. HEART: Regular rate and rhythm. No murmur. ABDOMEN: Soft. Bowel sounds are present. No masses. No tenderness. EXTREMITIES: No pedal edema. No calf tenderness. Dorsalis pedis +2 bilaterally. NEUROLOGICAL: Patient is awake, alert and oriented x3. Cranial nerves 2 through 12 are grossly intact. ASSESSMENT AND PLAN 1. Acute bilateral pneumonia and sepsis secondary to Covid 19 infection. Consult with pulmonary medicine appreciated. Continue on vitamin supplements, dexamethasone 6 mg IV push daily, Lovenox 40 mg daily, oxygen therapy. 2. Acute hypoxic respiratory failure secondary to Covid 19 infection. Continue oxygen therapy. 3. Hyperglycemia with no previous diagnosis of diabetes. Obtain A1c, NovoLog scale before meals and at bedtime. 4. DVT in the right lower extremity. Lovenox increased to 80 mg twice daily subcu. 5. Mild transaminitis secondary to Covid 19. 6. Lymphopenia secondary to Covid 19. 7. History of coronary artery disease with previous stent. 8. History of prostate cancer status post robotic prostatectomy. 9. GI prophylaxis. Protonix. 10. DVT prophylaxis. Lovenox. DISCHARGE PLAN Home. Impression and plan of care have been directed as dictated by the signing physician. Salima Coleman nurse practitioner acting as scribe for signing physician. Objective - Vital Signs Vital signs: Vital Signs Temp 98.2 F 05/06/21 05:54 Pulse 69 05/06/21 05:54 Resp 18 05/06/21 05:54 BP 139/82 05/06/21 05:54 Pulse Ox 92 L 05/06/21 05:54 Intake & Output 05/05/21 05/06/21 05/06/21 18:59 06:59 18:59 Intake Total 3000 Output Total 300 Balance 2700 Weight 92.079 kg Intake: Intake, IV Titration 900 Amount Sodium Chloride 0.9% 1, 900 000 ml @ 75 mls/hr IV . [id number] [facility] Rx#:[id number] Oral 2100 Output: Urine 300 Other: Voiding Method Urinal # Voids 4 2 - Labs CBC & Chem 7: 05/04/21 11:19 05/04/21 12:16 Labs: Abnormal Lab Results - Last 24 Hours (Table) 05/05/21 05/05/21 05/06/21 Range/Units 16:55 20:38 07:24 POC Glucose (mg/dL) 328 H 225 H 156 H (75-99) mg/dL
--- NOTE | 2021-05-06 15:11 | P.PN ---
Subjective Progress Note Date: 05/06/21 61-year-old male patient admitted to the hospital because of COVID 19 related pneumonia. The patient diagnosed today with COVID 19 infection. The patient developed symptoms approximately 2 weeks ago. His symptoms are essentially related to dyspnea and dry cough. No chest pain. He had poor appetite and generalized weakness and fatigue. This is a nonvaccinated individual. The patient came into the hospital and the patient had a temperature of 99.2. Pulse ox was low at 85%. Currently is on oxygen at 4 L and he has diffuse bilateral pulmonary infiltrates on his chest x-ray. He was started on Decadron. White cell count is at 8.4 with a platelet of 198. D-dimer is more than 34 and a normal coagulation profile with a lactic acid level of 1.9. CT angiogram showed no evidence of any pulmonary embolism and there was diffuse bilateral pulmonary infiltrates consistent with COVID 19 related pneumonia. Mild transaminitis related to the infection and troponins are negative. Comorbid conditions include prostate cancer On 05/05/2021 patient seen in follow-up on medical surgical floor. Patient is awake and alert, in no acute distress , breathing fairly comfortably, occasional cough, no chest discomfort, he is currently on 6 L of oxygen. Pulse ox is 92%. Lung sounds reveal diffuse coarse crackles bilaterally, this had no fever or chills, vital signs have been stable. Lower extremity Dopplers were completed showing occlusive right mid popliteal vein DVT, left leg was negative for DVT, patient's Lovenox dose was adjusted to therapeutic dosing and patient is currently on Lovenox 80 mg twice daily, in addition patient is on Decadron 6 mg IV push daily, in addition to COVID-19 vitamins. He was outside the window for Remdesivir. No acute events overnight, his pro calcitonin level came back negative at 0.24, his follow-up inflammatory markers and d-dimer are pending for today. On 05/06/2021, the patient is being seen for a follow-up. The patient is currently being treated for Coumadin today related pneumonia. The patient had developed his symptoms more than 2 weeks ago. He is doing well. No specific complaints for now. He feels well and is currently on 4 L of oxygen by nasal cannula. Noted the patient has been started on examination of Decadron and he is also not the correlation with Lovenox. He was outside the window for Remdesivir treatment. The patient is tolerating his diet. His LDH level is down to 87 and his CRP level is at 7.4. No other significant events otherwise for now. Noted the patient is currently on therapeutic dose of Lovenox 80 mg subcu every 12 hours and the patient was found to have a DVT involving the right lower extremity popliteal vein Objective - Vital Signs Vital signs: Vital Signs Temp 97.6 F 05/06/21 14:00 Pulse 66 05/06/21 14:00 Resp 19 05/06/21 14:00 BP 146/83 05/06/21 14:00 Pulse Ox 97 05/06/21 14:00 Intake & Output 05/05/21 05/06/21 05/06/21 18:59 06:59 18:59 Intake Total 3000 Output Total 300 Balance 2700 Weight 92.079 kg Intake: Intake, IV Titration 900 Amount Sodium Chloride 0.9% 1, 900 000 ml @ 75 mls/hr IV . [id number] [facility], [facility] Rx#:[id number] Oral 2100 Output: Urine 300 Other: Voiding Method Urinal # Voids 4 2 - Exam GENERAL EXAM: Alert, a pleasant, 61-year-old white male oxygen and pulse ox of 92% comfortable in no apparent distress. The patient is currently on 4 L of Oxymizer nasal cannula HEAD: Normocephalic/atraumatic. EYES: Normal reaction of pupils, equal size. Conjunctiva pink, sclera white. NOSE: Clear with pink turbinates. THROAT: No erythema or exudates. NECK: No masses, no JVD, no thyroid enlargement, no adenopathy. CHEST: No chest wall deformity. Symmetrical expansion. LUNGS: Equal air entry with bilateral crackles at bilateral bases CVS: Regular rate and rhythm, normal S1 and S2, no gallops, no murmurs, no rubs ABDOMEN: Soft, nontender. No hepatosplenomegaly, normal bowel sounds, no guarding or rigidity. EXTREMITIES: No clubbing, no edema, no cyanosis, 2+ pulses and upper and lower extremities. MUSCULOSKELETAL: Muscle strength and tone normal. SPINE: No scoliosis or deformity SKIN: No rashes CENTRAL NERVOUS SYSTEM: Alert and oriented -3. No focal deficits, tone is normal in all 4 extremities. PSYCHIATRIC: Alert and oriented -3. Appropriate affect. Intact judgment and insight. - Labs CBC & Chem 7: 05/04/21 11:19 05/04/21 12:16 Labs: Abnormal Lab Results - Last 24 Hours (Table) 05/05/21 05/05/21 05/06/21 Range/Units 16:55 20:38 07:24 POC Glucose (mg/dL) 328 H 225 H 156 H (75-99) mg/dL Lactate Dehydrogenase (313-618) U/L C-Reactive Protein (<1.0) mg/dL 05/06/21 05/06/21 Range/Units 08:46 11:38 POC Glucose (mg/dL) 245 H (75-99) mg/dL Lactate Dehydrogenase 807 H (313-618) U/L C-Reactive Protein 7.4 H (<1.0) mg/dL Assessment and Plan Plan: 1 acute pneumonia most likely secondary to COVID 19 infection. Awaiting COVID 19 results by PCR. The patient got swelled. The emergency and the result is still pending. Nevertheless, his presentation is typical for COVID 19 infection the patient was some thoracic approximately 2 weeks ago. He currently has bilateral lower lobe and upper lobe pulmonary infiltrates with a peripheral distribution. The patient is currently on 4 L of oxygen by nasal cannula. The patient is being treated with a combination of Decadron on anticoagulation with Lovenox as the patient has a DVT of the right right popliteal vein. 2 acute hypoxic respiratory failure currently on 4 L of oxygen by nasal cannula 3 shortness of breath secondary to above 4 elevated d-dimer with a negative EKG angiogram. Inflammatory markers will be monitored 5 mild transaminitis secondary to COVID 19. 6 lymphopenia 7 history of prostate cancer 8 history of coronary artery disease with previous coronary stenting 9 right lower extremity DVT, morbid popliteal currently on Lovenox Plan Clinically improving Continue Decadron Continue anticoagulation with Lovenox Confirmatory markers of lower Wean FiO2 as tolerated to maintain saturation above 90% Outside the window for Remdesivir treatment Doppler of the lower Doppler was positive for occlusive DVT of the level of the mid popliteal vein and the patient is currently on tapering dose of Lovenox.
[2021-05-06 16:31] LABS: Glucose,Whole Blood 203 mg/dL (75-99)
[2021-05-06 20:12] LABS: Glucose,Whole Blood 221 mg/dL (75-99)
[2021-05-06] MEDS ORDERED: CALCIUM CARBONATE 500 MG CHEWABLE PO PRN (21:54)
[2021-05-07 07:54] LABS: Glucose,Whole Blood 98 mg/dL (75-99)
[2021-05-07] MEDS: INSULIN ASPART (NovoLOG) 100 UNIT/ML VIAL SQ SCH ×4 (08:05→22:32)
[2021-05-07] MEDS: DEXAMETHASONE SOD PHOSPHATE 10 MG/ML 1 ML VIAL IVP SCH (08:44)
[2021-05-07] MEDS: ENOXAPARIN 80 MG/0.8 ML SYRINGE SQ SCH (08:48)
[2021-05-07] MEDS: ASCORBIC ACID 500 MG TAB PO SCH ×2 (08:48→22:32)
[2021-05-07] MEDS: ZINC SULFATE 220 MG CAP PO SCH (08:48)
[2021-05-07] MEDS: CHOLECALCIFEROL 25 MCG (1000 IU) TABLET PO SCH (08:48)
[2021-05-07 11:20] LABS: Glucose,Whole Blood 130 mg/dL (75-99)
[2021-05-07] MEDS: APIXABAN 5 MG TAB PO SCH ×2 (13:16→22:32)
--- NOTE | 2021-05-07 14:03 | P.PN ---
Subjective Progress Note Date: 05/07/21 HISTORY OF PRESENT ILLNESS This is a 61 year old male patient of Dr. Zelaya with past medical history of urinary artery disease, prostate cancer status post robotic-assisted pro statectomy, chronic back pain. Patient developed cough and difficulty breathing 2 weeks ago. He also complains of decreased appetite, generalized weakness and fatigue. Patient came into the hospital and found to have a pulse ox of 85%, temperature 99.2, heart rate 117, respiratory rate 24, blood pressure 109/66. CBC was unremarkable except for lymphocytes of 0.4. D-dimer greater than 34. Sodium 135 otherwise electrolytes and renal function normal. Blood sugar 175. Lactic acid 1.9. Magnesium 2.1. AST 67, ALT 85, alkaline phosphatase 77. ProBNP 500. Troponin negative. Pro- calcitonin 0.24. Carotid virus PCR detected. Chest x-ray revealed scattered areas of infiltrate throughout both lung carrasco compatible with underlying pneumonia. CTA of the chest revealed no evidence of pulmonary embolism. Bilateral multifocal and confluent groundglass opacities consistent with known Covid 19 infection. Ultrasound of bilateral lower extremities revealed positive for DVT on the right at the level of the mid popliteal vein. [facility], seen by pulmonary medicine and patient has been started on vitamin supplements, dexamethasone 6 mg IV push daily, Lovenox 40 mg daily. 05/06: Patient is seen today in follow-up on the [facility] floor. He states he has been out of bed once to the bathroom to shave but otherwise in bed. Pulse ox is 96% on 6 L nasal cannula. He has been afebrile, heart rate 70, blood pressure 139/82. Patient has been seen by pulmonary medicine and continued on Decadron, Lovenox and vitamin supplements. 05/07: Patient states that his breathing is better today. Pulse ox is 96% on 2 L and 89 and 90% on room air. Patient may require home O2. Lovenox will be transitioned to eliquis and prescription sent to [facility]. Patient states that his breathing is better today. We will plan to monitor overnight and discharged home tomorrow. REVIEW OF SYSTEMS Constitutional: No fever, no chills, no night sweats. No weight change. No weakness, reports and had positive Covid test done at [facility] pharmacy on 04/20. He has been off work since that time. Symptoms of 1. started to get better and then worsened recently. fatigue or lethargy. No daytime sleepiness. EENT: No headache. No blurred vision or double vision, no loss of vision. No loss of Hearing, no ringing in the ears, no dizziness. No nasal drainage or congestion. No epistaxis. No sore throat. Lungs: Reports shortness of breath, reports cough, no sputum production. No wheezing. Reports dyspnea with minimal activity Cardiovascular: No chest pain, no lower extremity edema. No palpitations. No paroxysmal nocturnal dyspnea. No orthopnea. No lightheadedness or dizziness. No syncopal episodes. Abdominal: No abdominal pain. No nausea, vomiting. No diarrhea. No constipation. No bloody or tarry stools. No loss of appetite. Genitourinary: No dysuria, increased frequency, urgency. No urinary retention. Musculoskeletal: No myalgias. No muscle weakness, no gait dysfunction, no frequent falls. No back pain. No neck pain. Integumentary: No wounds, no lesions. No rash or pruritus. No unusual bruisin g. No change in hair or nails. Neurologic: No aphasia. No facial droop. No change in mentation. No head injury. No headache. No paralysis. No paresthesia. Psychiatric: No depression. No anxiety. No mood swings. Endocrine: No abnormal blood sugars. No weight change. PHYSICAL EXAMINATION Gen: This is this is a 61-year-old male. He is resting in bed and mor ears to be comfortable at rest. Patient is currently on no oxygen. HEENT: Head is atraumatic, normocephalic. Pupils equal, round. Sclerae is anicteric. NECK: Supple. No JVD. No lymphadenopathy. No thyromegaly. LUNGS: Crackles in the bilaterally. No intercostal retractions. HEART: Regular rate and rhythm. No murmur. ABDOMEN: Soft. Bowel sounds are present. No masses. No tenderness. EXTREMITIES: No pedal edema. No calf tenderness. Dorsalis pedis +2 bilaterally. NEUROLOGICAL: Patient is awake, alert and oriented x3. Cranial nerves 2 through 12 are grossly intact. ASSESSMENT AND PLAN 1. Acute bilateral pneumonia and sepsis secondary to Covid 19 infection. Co nsult with pulmonary medicine appreciated. Continue on vitamin supplements, dexamethasone 6 mg IV push daily, eliquis, oxygen therapy. 2. Acute hypoxic respiratory failure secondary to Covid 19 infection. Continue oxygen therapy. 3. Hyperglycemia with no previous diagnosis of diabetes. Obtain A1c, NovoLog scale before meals and at bedtime. 4. DVT in the right lower extremity. Lovenox discontinued and patient started on eliquis. 5. Mild transaminitis secondary to Covid 19. 6. Lymphopenia secondary to Covid 19. 7. History of coronary artery disease with previous stent. 8. History of prostate cancer status post robotic prostatectomy. 9. GI prophylaxis. Protonix. 10. DVT prophylaxis. Lovenox. DISCHARGE PLAN Home. Impression and plan of care have been directed as dictated by the signing physician. Salima Coleman nurse practitioner acting as scribe for signing physician. Objective - Vital Signs Vital signs: Vital Signs Temp 97.6 F 05/07/21 10:00 Pulse 94 05/07/21 10:00 Resp 20 05/07/21 10:00 BP 100/66 05/07/21 10:00 Pulse Ox 91 L 05/07/21 10:00 Intake & Output 05/06/21 05/07/21 05/07/21 18:59 06:59 18:59 Other: Voiding Method Urinal # Voids 5 5 - Labs CBC & Chem 7: 05/04/21 11:19 05/04/21 12:16 Labs: Abnormal Lab Results - Last 24 Hours (Table) 05/06/21 05/06/21 05/06/21 Range/Units 08:46 08:46 11:38 POC Glucose (mg/dL) 245 H (75-99) mg/dL Hemoglobin A1c 6.2 H (4.0-6.0) % Lactate Dehydrogenase 807 H (313-618) U/L C-Reactive Protein 7.4 H (<1.0) mg/dL 05/06/21 05/06/21 Range/Units 16:30 20:11 POC Glucose (mg/dL) 203 H 221 H (75-99) mg/dL Hemoglobin A1c (4.0-6.0) % Lactate Dehydrogenase (313-618) U/L C-Reactive Protein (<1.0) mg/dL
--- NOTE | 2021-05-07 16:21 | P.PN ---
Subjective Progress Note Date: 05/07/21 61-year-old male patient admitted to the hospital because of COVID 19 related pneumonia. The patient diagnosed today with COVID 19 infection. The patient developed symptoms approximately 2 weeks ago. His symptoms are essentially related to dyspnea and dry cough. No chest pain. He had poor appetite and generalized weakness and fatigue. This is a nonvaccinated individual. The patient came into the hospital and the patient had a temperature of 99.2. Pulse ox was low at 85%. Currently is on oxygen at 4 L and he has diffuse bilateral pulmonary infiltrates on his chest x-ray. He was started on Decadron. White cell count is at 8.4 with a platelet of 198. D-dimer is more than 34 and a normal coagulation profile with a lactic acid level of 1.9. CT angiogram showed no evidence of any pulmonary embolism and there was diffuse bilateral pulmonary infiltrates consistent with COVID 19 related pneumonia. Mild transaminitis related to the infection and troponins are negative. Comorbid conditions include prostate cancer On 05/05/2021 patient seen in follow-up on medical surgical floor. Patient is awake and alert, in no acute distress , breathing fairly comfortably, occasional cough, no chest discomfort, he is currently on 6 L of oxygen. Pulse ox is 92%. Lung sounds reveal diffuse coarse crackles bilaterally, this had no fever or chills, vital signs have been stable. Lower extremity Dopplers were completed showing occlusive right mid popliteal vein DVT, left leg was negative for DVT, patient's Lovenox dose was adjusted to therapeutic dosing and patient is currently on Lovenox 80 mg twice daily, in addition patient is on Decadron 6 mg IV push daily, in addition to COVID-19 vitamins. He was outside the window for Remdesivir. No acute events overnight, his pro calcitonin level came back negative at 0.24, his follow-up inflammatory markers and d-dimer are pending for today. On 05/06/2021, the patient is being seen for a follow-up. The patient is currently being treated for Coumadin today related pneumonia. The patient had developed his symptoms more than 2 weeks ago. He is doing well. No specific complaints for now. He feels well and is currently on 4 L of oxygen by nasal cannula. Noted the patient has been started on examination of Decadron and he is also not the correlation with Lovenox. He was outside the window for Remdesivir treatment. The patient is tolerating his diet. His LDH level is down to 87 and his CRP level is at 7.4. No other significant events otherwise for now. Noted the patient is currently on therapeutic dose of Lovenox 80 mg subcu every 12 hours and the patient was found to have a DVT involving the right lower extremity popliteal vein 05/07/2021, seeing the patient for a follow-up. Doing well. His COVID 19 related pneumonia. The patient is currently on Decadron. He is also on Lovenox for DVT prophylaxis. No new complaints otherwise for now. The patient remains on oxygen 2 L per minute nasal cannula with a pulse of 75%. Afebrile. Hemodynamically stable. Noted earlier, the patient was in 40s about 2 by nasal cannula. He was weaned down to room air and subsequently had to be placed back on 2 L. His d-dimer was quite elevated at 34 and the patient's Doppler of the lower extremity showed non-compressibility of the distal popliteal and proximal Veins. No Doppler flow was demonstrated. Based on that, the patient was treated with therapeutic dose of Lovenox. There is no clear indication for DVT at this point in time. I would suggest repeating a d-dimer and repeating the Doppler lower extremity to decide on the anticoagulation course. Otherwise, the patient is doing well. No significant complaints otherwise for now. Objective - Vital Signs Vital signs: Vital Signs Temp 97.2 F L 05/07/21 13:50 Pulse 84 05/07/21 13:50 Resp 18 05/07/21 13:50 BP 110/65 05/07/21 13:50 Pulse Ox 95 05/07/21 13:50 Intake & Output 05/06/21 05/07/21 05/07/21 18:59 06:59 18:59 Other: Voiding Method Urinal # Voids 5 5 3 - Exam GENERAL EXAM: Alert, a pleasant, 61-year-old white male oxygen and pulse ox of 92% comfortable in no apparent distress. The patient is currently on 2 L nasal cannula HEAD: Normocephalic/atraumatic. EYES: Normal reaction of pupils, equal size. Conjunctiva pink, sclera white. NOSE: Clear with pink turbinates. THROAT: No erythema or exudates. NECK: No masses, no JVD, no thyroid enlargement, no adenopathy. CHEST: No chest wall deformity. Symmetrical expansion. LUNGS: Equal air entry with bilateral crackles at bilateral bases CVS: Regular rate and rhythm, normal S1 and S2, no gallops, no murmurs, no rubs ABDOMEN: Soft, nontender. No hepatosplenomegaly, normal bowel sounds, no guarding or rigidity. EXTREMITIES: No clubbing, no edema, no cyanosis, 2+ pulses and upper and lower extremities. MUSCULOSKELETAL: Muscle strength and tone normal. SPINE: No scoliosis or deformity SKIN: No rashes CENTRAL NERVOUS SYSTEM: Alert and oriented -3. No focal deficits, tone is normal in all 4 extremities. PSYCHIATRIC: Alert and oriented -3. Appropriate affect. Intact judgment and insight. - Labs CBC & Chem 7: 05/04/21 11:19 05/04/21 12:16 Labs: Abnormal Lab Results - Last 24 Hours (Table) 05/06/21 05/06/21 05/06/21 Range/Units 08:46 16:30 20:11 POC Glucose (mg/dL) 203 H 221 H (75-99) mg/dL Hemoglobin A1c 6.2 H (4.0-6.0) % 05/07/21 Range/Units 11:19 POC Glucose (mg/dL) 130 H (75-99) mg/dL Hemoglobin A1c (4.0-6.0) % Assessment and Plan Plan: 1 acute pneumonia most likely secondary to COVID 19 infection. Awaiting COVID 19 results by PCR. The patient got swelled. The emergency and the result is still pending. Nevertheless, his presentation is typical for COVID 19 infection the patient was some thoracic approximately 2 weeks ago. He currently has bilateral lower lobe and upper lobe pulmonary infiltrates with a peripheral distribution. The patient is currently on 2 L of oxygen by nasal cannula. The patient is being treated with a combination of Decadron on anticoagulation with Lovenox as the patient has a DVT of the right right popliteal vein. This clot think is questionable and needs to be further evaluated and suggested rescanning. 2 acute hypoxic respiratory failure currently on 2 L nasal cannula. 3 shortness of breath secondary to above 4 elevated d-dimer with a negative EKG angiogram. Inflammatory markers will be monitored 5 mild transaminitis secondary to COVID 19. 6 lymphopenia 7 history of prostate cancer 8 history of coronary artery disease with previous coronary stenting 9 right lower extremity DVT, morbid popliteal currently on Lovenox Plan Clinically improving, currently on 2 L of oxygen Continue Decadron Continue anticoagulation with Lovenox at therapeutic dose Recheck d-dimer and Doppler of the lower extremity Wean FiO2 as tolerated to maintain saturation above 90% Outside the window for Remdesivir treatment Doppler of the lower Doppler was positive for occlusive DVT of the level of the mid popliteal vein and the patient is currently on therapeutic dose of Lovenox. I think it's worthwhile to repeat a Doppler and the d-dimer and decide whether full dose of anticoagulant as needed in this patient.
[2021-05-07 16:38] LABS: Glucose,Whole Blood 209 mg/dL (75-99)
--- NOTE | 2021-05-07 19:56 | US ---
EXAMINATION TYPE: US venous doppler duplex LE BI DATE OF EXAM: 05/07/2021 7:11 PM COMPARISON: NONE CLINICAL HISTORY: Abnormal study. history of DVT . COVID SIDE PERFORMED: Bilateral TECHNIQUE: The lower extremity deep venous system is examined utilizing real time linear array sonog rios with graded compression, doppler sonography and color-flow sonography. VESSELS IMAGED: Common Femoral Vein Deep Femoral Vein Greater Saphenous Vein * Femoral Vein Popliteal Vein Small Saphenous Vein * Proximal Calf Veins (* superficial vessels) Right Leg: ++positive for DVT right popliteal vein mid extending into proximal calf veins with littl e to no change from prior exam Left Leg: no evidence of DVT IMPRESSION: There is acute deep vein thrombosis in the right popliteal vein. No evidence of deep vein thrombosis in the left leg.
[2021-05-07 20:59] LABS: Glucose,Whole Blood 209 mg/dL (75-99)
[2021-05-08 07:06] LABS: Glucose,Whole Blood 98 mg/dL (75-99)
[2021-05-08] MEDS: INSULIN ASPART (NovoLOG) 100 UNIT/ML VIAL SQ SCH ×2 (07:16→12:00)
[2021-05-08] MEDS: ZINC SULFATE 220 MG CAP PO SCH (09:00)
[2021-05-08] MEDS: CHOLECALCIFEROL 25 MCG (1000 IU) TABLET PO SCH (09:00)
[2021-05-08] MEDS: DEXAMETHASONE SOD PHOSPHATE 10 MG/ML 1 ML VIAL IVP SCH (09:00)
[2021-05-08] MEDS: APIXABAN 5 MG TAB PO SCH (09:00)
[2021-05-08] MEDS: ASCORBIC ACID 500 MG TAB PO SCH (09:00)
--- NOTE | 2021-05-08 10:00 | P.DS ---
Providers Date of admission: 05/04/21 13:16 Expected date of discharge: 05/08/21 Attending physician: Jenny Serra Consults: 05/04/21 13:43 Consult Physician Routine Consulting Provider: Ned Hanley Consult Reason/Comments: COVID PNA Do you want consulting provider notified?: Yes Primary care physician: Sal [facility] Course: HISTORY OF PRESENT ILLNESS This is a 61 year old male patient of Dr. Zelaya with past medical history of urinary artery disease, prostate cancer status post robotic-assisted prostatectomy, chronic back pain. Patient developed cough and difficulty breathing 2 weeks ago. He also complains of decreased appetite, generalized weakness and fatigue. Patient came into the hospital and found to have a pulse ox of 85%, temperature 99.2, heart rate 117, respiratory rate 24, blood pressure 109/66. CBC was unremarkable except for lymphocytes of 0.4. D-dimer greater than 34. Sodium 135 otherwise electrolytes and renal function normal. Blood sugar 175. Lactic acid 1.9. Magnesium 2.1. AST 67, ALT 85, alkaline phosphatase 77. ProBNP 500. Troponin negative. Pro- calcitonin 0.24. Carotid virus PCR detected. Chest x-ray revealed scattered areas of infiltrate throughout both lung carrasco compatible with underlying pneumonia. CTA of the chest revealed no evidence of pulmonary embolism. Bilateral multi focal and confluent groundglass opacities consistent with known Covid 19 infection. Ultrasound of bilateral lower extremities revealed positive for DVT on the right at the level of the mid popliteal vein. Patient has been admitted to the [facility] floor, seen by pulmonary medicine and patient has been started on vitamin supplements, dexamethasone 6 mg IV push daily, Lovenox 40 mg daily. 05/06: [facility]. He states he has been out of bed once to the bathroom to shave but otherwise in bed. Pulse ox is 96% on 6 L nasal cannula. He has been afebrile, heart rate 70, blood pressure 139/82. Patient has been seen by pulmonary medicine and continued on Decadron, Lovenox and vitamin supplements. 05/07: Patient states that his breathing is better today. Pulse ox is 96% on 2 L and 89 and 90% on room air. Patient may require home O2. Lovenox will be transitioned to eliquis and prescription sent to [facility]. Patient states that his breathing is better today. We will plan to monitor overnight and discharged home tomorrow. 05/08: Patient has been afebrile, heart rate 90, blood pressure 103/66, pulse ox 91% on room air. Patient dropped down to 87% on room air and qualifies for home oxygen therapy. D-dimer 13.4. Blood sugars running between 98 and 209. Patient's breathing status is stable and he will be discharged home today in stable condition. DISCHARGE DIAGNOSES 1. Acute bilateral pneumonia and sepsis secondary to Covid 19 infection. 2. Acute hypoxic respiratory failure secondary to Covid 19 infection. 3. Hyperglycemia with no previous diagnosis of diabetes. A1c 6.2. 4. DVT in the right lower extremity. 5. Mild transaminitis secondary to Covid 19. 6. Lymphopenia secondary to Covid 19. 7. History of coronary artery disease with previous stent. 8. History of prostate cancer status post robotic prostatectomy. 9. Chronic hypoxic respiratory failure requiring home oxygen therapy in order to manage Covid 19 infection DISCHARGE PLAN Home. Greater than 35 minutes was utilized and coordinating patient's discharge. Impression and plan of care have been directed as dictated by the signing physician. Salima Coleman nurse practitioner acting as scribe for signing physician. Patient Condition at Discharge: Stable Plan - Discharge Summary Discharge Rx Participant: No New Discharge Prescriptions: New Ascorbic Acid [Vitamin C] 500 mg PO BID tab Cholecalciferol [Vitamin D3 (25 Mcg = 1000 Iu)] 50 mcg PO DAILY tablet Apixaban [Eliquis Starter Pack (for VTE)] 5 - 10 mg PO DIRECTED 30 Days #1 each Dexamethasone [Decadron] 6 mg PO DAILY #5 tablet Zinc Sulfate [Orazinc] 220 mg PO DAILY cap Continue Multivitamins, Thera [Multivitamin (formulary)] 1 tab PO DAILY Discharge Medication List Multivitamins, Thera [Multivitamin (formulary)] 1 tab PO DAILY 11/25/19 [History] Apixaban [Eliquis Starter Pack (for VTE)] 5 - 10 mg PO DIRECTED 30 Days #1 each 05/07/21 [Rx] Ascorbic Acid [Vitamin C] 500 mg PO BID tab 05/08/21 [Rx] Cholecalciferol [Vitamin D3 (25 Mcg = 1000 Iu)] 50 mcg PO DAILY tablet 05/08/21 [Rx] Dexamethasone [Decadron] 6 mg PO DAILY #5 tablet 05/08/21 [Rx] Zinc Sulfate [Orazinc] 220 mg PO DAILY cap 05/08/21 [Rx] Follow up Appointment(s)/Referral(s): Sal Zelaay DO [Primary Care Provider] - 06/05/21 4:30 pm Discharge Disposition: HOME SELF-CARE
[2021-05-08 11:53] LABS: Glucose,Whole Blood 199 mg/dL (75-99)
[2021-05-08 14:29] VITALS: BP 130/74; PULSE 114; RESP 21; TEMP 98.2
== END 2021-05-08 15:13 | disposition home or self-care (01) | DRG 871 ==
LOC: EC 10:39 → 4SSUR 13:16 → 5NMEDONC 14:09 → 4SSUR 14:10
PROVIDERS: ADMIT Family Medicine; ATTEND Family Medicine
PROC: 3E0333Z Introduction of Anti-inflammatory into Peripheral Vein, Percutaneous Approach (ICD-10-PCS; principal; 2021-05-04)
PROC: 5A0935A Assistance with Respiratory Ventilation, Less than 24 Consecutive Hours, High Flow/Velocity Cannula (ICD-10-PCS; 2021-05-05)
DX: A41.89 Other specified sepsis (principal); U07.1 COVID-19; J12.82 Pneumonia due to coronavirus disease 2019; J96.01 Acute respiratory failure with hypoxia; I82.431 Acute embolism and thrombosis of right popliteal vein; D72.810 Lymphocytopenia; I25.10 Atherosclerotic heart disease of native coronary artery without angina pectoris; Z82.49 Family history of ischemic heart disease and other diseases of the circulatory system; Z85.46 Personal history of malignant neoplasm of prostate; Z95.5 Presence of coronary angioplasty implant and graft; R73.9 Hyperglycemia, unspecified; R74.01 Elevation of levels of liver transaminase levels; Z90.79 Acquired absence of other genital organ(s)
CPT/HCPCS: 36415; 71046; 71275; 80053; 83036; 83605; 83615; 83735; 83880; 84145; 84484; 85025; 85379; 85610; 85730; 86140; 87635; 93005; 93970; 96374; 99291

== ENCOUNTER → 2021-06-14 | Outpatient (CLI) | payer OTHER | END | disposition home or self-care (01) | LOC: LABWHC1 14:15 | PROVIDERS: ATTEND Family Medicine | DX: I82.409 Acute embolism and thrombosis of unspecified deep veins of unspecified lower extremity (principal) | CPT/HCPCS: 36415; 85379 ==

== ENCOUNTER → 2021-06-15 | Outpatient (CLI) | payer OTHER ==
--- NOTE | 2021-06-15 16:19 | US ---
EXAMINATION TYPE: US venous doppler duplex LE BI DATE OF EXAM: 06/15/2021 4:04 PM COMPARISON: Prior bilateral m the ultrasound May 07, 2021 CLINICAL HISTORY: R79.1 ELEVATED D DIMER. DVT in right leg May 2021. On blood thinners and aspirin. No redness or swelling. Pain. SIDE PERFORMED: Bilateral TECHNIQUE: The lower extremity deep venous system is examined utilizing real time linear array sonog rios with graded compression, doppler sonography and color-flow sonography. VESSELS IMAGED: Common Femoral Vein Deep Femoral Vein Greater Saphenous Vein * Femoral Vein Popliteal Vein Small Saphenous Vein * Proximal Calf Veins (* superficial vessels) Right Leg: Negative for DVT Left Leg: Negative for DVT Grayscale, color doppler, spectral doppler imaging performed of the deep veins of the bilateral lower extremities. There is normal flow, compressibility, vascular waveforms. IMPRESSION: No ultrasound evidence for acute DVT in either lower extremity on today's study.
== END | disposition home or self-care (01) ==
LOC: RADUSWWP 15:37
PROVIDERS: ATTEND Family Medicine
DX: R79.1 Abnormal coagulation profile (principal)
CPT/HCPCS: 93970